=== PATIENT | female | born 1955 | race Caucasian/White ===

== ENCOUNTER 2024-02-21 18:20 | Inpatient (IN) | payer BC, SELFPAY ==
[2024-02-21 14:25] VITALS: BP 195/62
--- NOTE | 2024-02-21 14:43 | ED.GENMED ---
History of Present Illness
General
Chief Complaint: Breathing Problem
Source: patient
Exam Limitations: none
Time Seen by Provider: 02/21/24 14:38
Nursing documentation reviewed up to this point in time: agreed with
History of Present Illness
History of Present Illness:
Patient is a 68-year-old female who presents to the ER for evaluation. Patient reports the past several weeks she has had intermittent nausea and off-and-on diarrhea. She also has noticed over the past several days that her heart rate was on the
lower side in the 40s. She reports her heart rate is normally 68�72. In addition she has felt mildly short of breath. She is from [place] and saw her primary care physician in [place] on Saturday who did blood work and put her on potassium for
today and tomorrow. She came here to [facility] to be evaluated by cardiology.
Phy Exam
General Physical Exam
General Presentation: no apparent distress
General age: appears stated age
General Skin: warm and dry
General Habitus: normal
General Mental: alert
General Hydration: appears well hydrated
Cardiovascular Exam
Cardiovascular Exam: normal peripheral pulses and bradycardia
Pulmonary Exam
Pulmonary Exam: lungs clear and no respiratory distress
Neurological Exam
Neurological Exam: alert
[place] Coma Scale
Eye Opening: Spontaneous
Verbal Response: Oriented
Motor Response: Obeys Commands
GCS Total Score: 15
Musculoskeletal Exam
Musculoskeletal Exam: full ROM
Skin Exam
Skin Exam: normal color and warm/dry
Psychiatric Exam
Psychiatric Exam: normal mood/affect
Scores
Heart Failure Risk
Heart Failure Risk Score: Not Applicable
Course
Orders/Labs/Results
Orders:
Orders
02/21/24 14:25
ECG [Electrocardiogram (*1)] Urgent
Reason for Study: Shortness of Breath
EKG- Treatment ONCE
02/21/24 14:44
Cardiac Monitoring- Treatment ONCE
IV Insert/Care/Rem.- Treatment PRN
02/21/24 15:07
Basic Metabolic Panel Urgent
Complete Blood Count/With Diff Urgent
Pro-BNP [NT-proBNP] Urgent
TSH Reflex To Free T4 Urgent
Troponin I Urgent
02/21/24 15:17
Add On- LAB Urgent
Tests Added?: mag.
02/21/24 16:19
Magnesium Urgent
Potassium Urgent
02/21/24 16:24
HydrALAZINE [Apresoline] 20 mg PO PRN PRN
Abnormal Lab Results
02/21/24
15:07
MPV 11.0 H fL
(7.4-10.4)
Absolute Monos (auto) 0.9 H 10^3/uL
(0.1-0.6)
Monocytes % 9.4 H %
(1.7-9.3)
Chloride 109 H mmol/L
(98-107)
Carbon Dioxide 18 L mmol/L
(22-30)
BUN 27 H mg/dl
(7-17)
Creatinine 1.6 H mg/dL
(0.6-1.0)
Glucose 100 H mg/dl
(70-99)
02/21/24 15:07
02/21/24 16:19
Vital Signs
Initial and Last Documented VS:
Initial Vital Signs
Temp Pulse Resp BP Pulse Ox
99.4 F 47 16 195/62 99
02/21/24 14:25 02/21/24 14:25 02/21/24 14:25 02/21/24 14:25 02/21/24 14:25
Last Documented Vital Signs
Temp Pulse Resp BP Pulse Ox
99.4 F 83 20 188/44 95
02/21/24 14:25 02/21/24 16:15 02/21/24 16:15 02/21/24 16:00 02/21/24 16:15
Staker Surveying consulted with Physician
Staker Surveying consulted with physician?: Yes
Name of Physician Consulted: tan
MDM/Problems Addressed
Differential Diagnosis Includes:
Not limited to arrhythmia electrolyte abnormality, dehydration, congestive heart failure
MDM/Problems Addressed:
Patient is a 68-year-old female who presented to the ER for evaluation. Patient has had intermittent diarrhea and nausea over the past several weeks and has noticed recently that her heart rate was low in the 40s. She saw her family doctor several
days ago and presented here to the ER. She does complain of some shortness of breath with exertion which is new over the past several days to 1 week. Patient presents with a low heart rate in the 40s nonhypoxic here in the ER case reviewed and EKG
reviewed by cardiology, DR Maged Andrews . EKG appears to be a 2-1 AV block.
Patient evaluated by cardiology normal potassium normal magnesium will need pacemaker patient admitted to the hospital service.
*Pulse Oximetry
Patient hypoxic: no
*EKG
Interpreted by ED Provider?: Yes
Comparison EKG: no comparison EKG present
Heart Rate: 43
Rate: normal
Rhythm: sinus and other (Sinus with 2-1 AV conduction block)
*Critical Care Note
Total Time (30-74mins, 75-104mins- exclusive of procedures): Not Applicable
Patient Management
Discussion with other providers: Survey Research Professor (cardiology Dr Andrews)
ED Attending Note
-
Portions of this chart may have been created with voice recognition software.� Occasional wrong word or��sound alike� substitutions may have occurred due to the inherent limitations of voice recognition software.
Discharge Plan
Departure
Patient Disposition: Admit
Date of Disposition: 02/21/24
Time of Disposition: 16:58
Admit to: Telemetry
Admit to doctor: hospitalist
Presentation/result/management discussed w/ accepting MD/DO: Hospitalist
Patient with high blood pressure during this ER visit?: Yes
Condition: Fair
Covid-19: Not Applicable
Discharge Problem:
Symptomatic bradycardia
Prescriptions:
No Action
diphenhydramine HCl [Benadryl] 50 mg Capsule
50 mg PO HSPRN PRN (Reason: allergies)
cetirizine [Zyrtec] 10 mg Tablet
10 mg PO DAILYPRN PRN (Reason: allergies)
amlodipine 5 mg Tablet
5 mg PO HS
albuterol sulfate 90 mcg/actuation Hfa Aerosol Inhaler
2 puff INHALATION R Q6HPRN PRN (Reason: sob)
losartan 100 mg Tablet
100 mg PO DAILY
Referrals:
SUDEEP CALDERON [Other]
SUDEEP CALDERON [Other]
Interventions
Interventions:
*Risk Screen - Suicide Last Done: 02/21/24 14:29
*General Assessment Last Done: 02/21/24 15:18
*Neglect/Abuse Screening Last Done: 02/21/24 14:29
ED- Fall Risk Assessment Last Done: 02/21/24 15:18
ED- Cardiac Assessment Last Done: 02/21/24 15:18
ED- Pulmonary Assessment Last Done: 02/21/24 15:18
Discharge Date and Time
Print Language: STATELESS
--- NOTE | 2024-02-21 15:04 | CON.CAR ---
Addendum entered and electronically signed by Maged Andrews MD (Ellie) 02/21/24 16:24:
I saw and examined the patient.
The RETURNS SUPERVISOR's note was reviewed and I agree with the note.
Comment:
68-year-old female with past medical history of hypertension who presents with shortness of breath on exertion and low heart rates. Patient reports that since late last week or early this week, she has noted dyspnea on exertion. She also checked
her heart rates and noted that they were in the 40s to 50s. She saw her primary care doctor on Saturday and he told her that based on her ECG, she had a mild blockage and she should either go to the ER or follow-up with cardiology. Review of her
ECG from that time shows 2-1 AV block. She lives in [place] primarily but came up to this area to drop her dogs off at the vet. And someone at the vet told her that she should come to the hospital. Also notably she has had diarrhea and GI upset
this week. Her PCP prescribed potassium tablets which she took on Saturday. She got labs done on morning which she thinks showed a potassium of 4.4. In general her blood pressure is uncontrolled she does not check it at home, but notes
that in her PCPs office it is systolics in the 140s to 170s. She is on amlodipine and losartan but does not know the doses.
Physical exam is notable for obese female in no acute distress, cardiovascular exam with bradycardia, no murmurs/rubs/gallops, no lower extremity edema, clear lungs bilaterally, JVP difficult to assess due to body habitus. Labs notable for CBC
within normal limits, creatinine 1.6 (unknown baseline), troponin 0.02, proBNP 1360, TSH 1.2, potassium and magnesium are pending. Twelve-lead ECG shows sinus rhythm with 2-1 AV conduction and a right bundle branch block.
In summary she has 2-1 conduction likely due to second-degree AV block (Mobitz type II) given her known infra-Hisian conduction disease with right bundle branch block. She is currently hemodynamically stable and asymptomatic at rest. There are no
obvious reversible causes such as thyroid abnormality, ischemia, risk factors for Lyme disease, or concern for endocarditis. That being said we need to ensure that this is not due to an electrolyte issue. We will discuss with EP colleagues to see
if she needs a pacemaker today or can be monitored on telemetry until Saturday. She is hypertensive with a wide pulse pressure. It sounds like her blood pressure is uncontrolled at baseline. I do not want to treat aggressively given her AV block
and low diastolic pressure. We can give her hydralazine as needed for systolic >180.
Original Note:
Consultation
Consultation Request
Date/Time Consultation Requested: 02/21/2024 15:00
Date/Time Consultation Performed: 02/21/2024 15:05
Requesting Provider: SILVIA Aparicio
Performing Provider: SILVIA Silveira for Dr. Andrews
Reason for Consultation: Abnormal EKG
Medical History
-
Chief Complaint: Low heart rate
History of Present Illness:
Magalie Arceo is a 68-year-old female from [place] with hypertension who presented to the emergency department with a chief complaint of low heart rate. She endorsed associated AGUILAR. She saw her PCP on Saturday. She has been experiencing
nausea with diarrhea. She was self treating at home with rico chews. EKG in his office showed 'slow heart rate'. I was able to obtain a copy of the EKG and she appeared to be in 2:1 heart block. He told her to see a carpentry instructor. He gave her
a short course of oral potassium. She presented to the emergency department at the recommendation of a local friend. She endorses some fatigue. No syncope/presyncope.
Past Medical History
Past Medical History: HTN
Social History
Tobacco: Non-Smoker
Alcohol: None
Drug: None
Personal: Single
Living: Alone
Family History
Family History: Reviewed & Not Pertinent (Denies premature CAD and SCD.)
Allergies / Home Medications
Allergy/AdvReac Type Severity Reaction Status Date / Time
Penicillins Allergy Rash Verified 02/21/24 14:30
Sulfa (Sulfonamide Allergy Rash Verified 02/21/24 14:30
Antibiotics)
Review of Systems
-
History Source: Patient
All other systems: Negative unless noted
Constitutional: Fatigue
EENT: No Symptoms
Respiratory: Trouble Breathing
Cardiac: No Symptoms
Abdomen/GI: Diarrhea
: No Symptoms
Musculoskeletal: No Symptoms
Skin: No Symptoms
Neurological: No Symptoms
Endocrine: No Symptoms
Hematologic/Lymphatic: No Symptoms
Physical Exam
Vital Signs
Temp Pulse Resp BP Pulse Ox
99.4 F 47 16 195/62 99
02/21/24 14:25 02/21/24 14:25 02/21/24 14:25 02/21/24 14:25 02/21/24 14:25
Physical Exam
General: Well Developed, Well Nourished, No Apparent Distress and Comfortable
HEENT: Normocephalic, Anicteric and Moist Mucous Membranes
Respiratory: Clear and Non Labored Respirations
Cardiac: S1/S2, Regular Rhythm and Peripheral Edema (trace LE edema)
Breast: Deferred by me
GI: Soft, Non Tender, Non Distended and Normal Bowel Sounds
Rectal: Deferred by Provider
Genito-urinary: No Costovertebral Tender
Musculoskeletal: No Clubbing and No Cyanosis
Skin: Warm and Dry
Neuro: AO x 3
Hematologic/Lymphatic: No Lymphadenopathy
Psych: Calm
Impression / Plan
-
2:1 heart block
-Labs are pending, rule out electrolyte abnormality
-TSH pending
-This rhythm has been ongoing since before 02/19/2024
HTN
-On amlodipine and losartan as an outpatient
Nausea and diarrhea, per primary
[2024-02-21 15:28] LABS: % Basophils 0.3 % (0-2); % Eosinophils 0.4 % (0-6); % Immature Granulocytes 0.2 % (0-0.5); % Lymphocytes 23.6 % (20.5-51.1); % Monocytes 9.4 % (1.7-9.3); % Neutrophils 66.1 % (42.2-75.2); Absolute Lymphocytes 2.3 10^3/uL (1.2-3.4); Absolute Monocytes 0.9 10^3/uL (0.1-0.6); Absolute Neutrophils 6.3 10^3/uL (1.4-6.5); Hematocrit 39.8 % (37.0-47.0); Hemoglobin 13.5 g/dL (12.0-16.0); Mean Corp Hgb Conc. 33.9 g/dL (33.0-37.0); Mean Corpuscular Hgb 30.9 pg (27.0-31.0); Mean Corpuscular Volume 91.1 fL (81.0-99.0); Nucleated Red Blood Cells % 0 %; Platelet Count 269 10^3/uL (130-400); Red Blood Cell Count 4.37 10^6/uL (4.20-5.40); Red Cell Dist. Width 14.5 % (11.5-14.5); White Blood Cell Count 9.5 10^3/uL (4.8-10.8)
[2024-02-21 15:55] LABS: NT-proBNP 1360 pg/ml; Troponin I 0.022 ng/ml
[2024-02-21 16:00] VITALS: BP 188/44
[2024-02-21 16:08] LABS: Blood Urea Nitrogen 27 mg/dl (7-17); Carbon Dioxide 18 mmol/L (22-30); Chloride 109 mmol/L (98-107); Glucose 100 mg/dl (70-99); Sodium 141 mmol/L (135-145); eGFR 35.35
[2024-02-21 16:13] LABS: TSH Reflex To Free T4 1.21 uIU/ml (0.47-4.68)
[2024-02-21 16:41] LABS: Magnesium 2.2 mg/dl (1.6-2.3); Potassium 4.5 mmol/L (3.5-5.1)
--- NOTE | 2024-02-21 17:03 | HPS.HSE ---
Family Physician
-
Family Physician: SUDEEP CALDERON
Chief Complaint
-
so
History of Present Illness
68-year-old female with past medical history of hypertension who presents with shortness of breath on exertion and low heart rates for more than a week. stated sob with exertion. denied chest pain, runny nose, congestion, cough. denied fever,
chills.patient noted her heart was not beating as usual. she noted heart rate was in 40's. She saw her primary care doctor on Saturday and he told her that based on her ECG, she had a mild blockage and she should either go to the ER or follow-up
with cardiology. Review of her ECG from that time shows 2-1 AV block. Also notably she has had diarrhea 3 weeks ago, which got better. denied abdominal pain,n,v,d. denied dysuria or hematuria.
upon arrival she was noted in heart block. admitting for further management.
Medical History
Past Medical History
Past Medical History: Reports Other
Additional Past Medical History:
HTn
Past Surgical History: Reports None
Social History
Tobacco: Non-smoker
Alcohol: None
Drug: None
Family History
Family History: Not pertinent
Allergies / Home Medications
Allergies reflects when Allergies were last updated in [facility].
Home Medications with original date entered in [facility]
Allergy/Medication List:
Allergies
Allergy/AdvReac Type Severity Reaction Status Date / Time
Penicillins Allergy Rash Verified 02/21/24 14:30
Sulfa (Sulfonamide Allergy Rash Verified 02/21/24 14:30
Antibiotics)
Home Medications
albuterol sulfate 90 mcg/actuation aerosol inhaler 2 puff inhalation R Q6HPRN PRN sob 02/21/24
amlodipine 5 mg tablet 5 mg PO HS 02/21/24
cetirizine 10 mg tablet (Zyrtec) 10 mg PO DAILYPRN PRN allergies 02/21/24
diphenhydramine HCl 50 mg capsule 50 mg PO HSPRN PRN allergies 02/21/24
losartan 100 mg tablet 100 mg PO DAILY 02/21/24
Review of Systems
-
Constitutional: Reports No Symptoms
EENT: Reports No Symptoms
Respiratory: Reports Trouble Breathing
Cardiac: Reports No Symptoms
Abdomen/GI: Reports No Symptoms
: Reports No Symptoms
Musculoskeletal: Reports No Symptoms
Skin: Reports No Symptoms
Neurological: Reports No Symptoms
Endocrine: Reports No Symptoms
Hematologic/Lymphatic: Reports No Symptoms
Psych: Reports No Symptoms
Physical Exam
Vital Signs
Vital Signs
Temp Pulse Resp BP Pulse Ox
99.4 F 83 20 188/44 95
02/21/24 14:25 02/21/24 16:15 02/21/24 16:15 02/21/24 16:00 02/21/24 16:15
Physical Exam
General: Well Developed, Well Nourished and No Apparent Distress
HEENT: NormoCephalic, Moist mucous membranes and Atraumatic
Respiratory: Clear
Cardiac: S1/S2 and Regular Rhythm; No Murmur or Rub
GI: Soft, Non Tender, Non Distended and Normal Bowel Sounds; No Organomegaly
Rectal: Deferred by Provider
Musculoskeletal: No Clubbing, No Cyanosis and No Edema
Skin: No Rash
Neuro: AO x 3 and Nonfocal/grossly intact
Psych: Calm
Laboratory Results
-
02/21/24 15:07
02/21/24 16:19
Laboratory Results
Total Bilirubin Cancelled 02/21/24 15:07
AST Cancelled 02/21/24 15:07
ALT Cancelled 02/21/24 15:07
Alkaline Phosphatase Cancelled 02/21/24 15:07
Troponin I 0.022 ng/ml 02/21/24 15:07
Data Reviewed
-
Lab Data: Labs Reviewed by me
Impression/Plan
-
# Bradycardia/Short of breath likely from heart block
-EKG with normal sinus rhythm with 2:1 A-V conduction, right bundle branch block
-For pacemaker
-Cardiology following patient
# Acute kidney injury
-Creatinine 1.6, CO2 18
-hold losartan
HTN
-Norvasc continued
#DVT prophylaxis
-heparin sq
#CODE status
-full code
[2024-02-21 17:15] VITALS: BP 144/103
[2024-02-21 18:00] VITALS: BP 188/58
--- NOTE | 2024-02-21 18:58 | W.PN.UPDATE ---
Update Note
Progress Note Update
This is an addendum to the H&P written by Monisha Curiel on 02/21/2024. Patient seen and examined independently with DIVER PUMPER.
68-year-old female medical history of uncontrolled hypertension, presenting with shortness of breath on exertion and low heart rates since last week. She saw her primary care who noted 2:1 AV block on EKG.
EKG shows 2-1 AV conduction block likely Mobitz type II. Right bundle branch block. TSH unremarkable. Potassium and magnesium levels unremarkable.
She has a history of uncontrolled blood pressure currently blood pressure 188/58 with with elevated pulse pressure. As needed hydralazine. Cardiology consulted to determine if pacemaker is necessary.
Labs show creatinine 1.6, unclear baseline. Hold losartan for now. Cardiac BNP 1360. Chest x-ray unremarkable.
[2024-02-21 19:00] VITALS: BP 202/66
[2024-02-21] MEDS: NORVASC 5 MG PO (21:30)
--- NOTE | 2024-02-21 21:45 | PTCARENOTE ---
Pt received from ED at 2130. Pt pleasant, AAOX3, VSS, HR in the 40's, and able to ambulate into room. Pt receptive to room and call henry. Pt bed in lowest position and call henry within reach. Pt educated on importance of call henry usage, pt relays
understanding and cooperation. Will continue with current plan of care.
[2024-02-22] VITALS (12 sets, daily range): BP systolic 139–205; BP diastolic 43–73
--- NOTE | 2024-02-22 02:35 | W.PN.UPDATE ---
Update Note
Progress Note Update
RN reported patient HR down to 29-30's, BP157/64, HR33, O297, T98.1, R 18. Patient asymptomatic. Admitted with Bradycardia 2:1 2nd degree AV Heart block (Mobitz II), Likely due to electrolyte imbalance due to ongoing diarrhea, K and mag noted to be
wnl, BUN/creat elevated, will bolus with 250 IV NSS, advised to place AED pads and transfer to IVU for closer observation. labs and EKG in AM.
[2024-02-22] MEDS: NSS 250 IV (02:38)
--- NOTE | 2024-02-22 03:00 | PTCARENOTE ---
Pt HR sustaining in low 30's, frequently dropping to 29 or 28. Pt not complaining of any chest pain, dizziness, lightheadedness, or any new symptoms. Pt current VS are BP157/64, HR33, O297, T98.1, R 18. TOOL PLANER SET UP OPERATOR notified and TOOL PLANER SET UP OPERATOR recommended to apply AED
pads, administer 250 bolus IVF and upgrade pt to IVU for further treatment. Pt transported via wheelchair and handed off to IVU [place], at 0320.
[2024-02-22 04:43] LABS: Hematocrit 38.5 % (37.0-47.0); Hemoglobin 13.1 g/dL (12.0-16.0); Mean Corpuscular Hgb 30.8 pg (27.0-31.0); Mean Corpuscular Volume 90.6 fL (81.0-99.0); Platelet Count 254 10^3/uL (130-400); Red Blood Cell Count 4.25 10^6/uL (4.20-5.40); Red Cell Dist. Width 14.5 % (11.5-14.5)
[2024-02-22 05:12] LABS: Blood Urea Nitrogen 25 mg/dl (7-17); Calcium 9.5 mg/dl (8.4-10.2); Carbon Dioxide 19 mmol/L (22-30); Chloride 109 mmol/L (98-107); Glucose 101 mg/dl (70-99); Potassium 4.3 mmol/L (3.5-5.1); Sodium 142 mmol/L (135-145); eGFR 45.35
[2024-02-22] MEDS: APRESOLINE 20 MG PO ×2 (05:20→23:06)
--- NOTE | 2024-02-22 05:55 | PTCARENOTE ---
Received patient from 4th floor. SB with a 2nd degree HB and BBB on the monitor. HR in the 30s, patient has no symptoms. Oriented pt to room and discussed plan of care, pt verbalizes understanding. Pts BP 193/52, and HR occasionally dropping to 27
INDUSTRIAL MAINTENANCE ELECTRICIAN Lynn Monte made aware, PRN hydralazine administered as per JUN. Pt complains of not being able to sleep because of the beeping from her low HR on the monitor. Ear plugs given to pt. Call henry within reach.
--- NOTE | 2024-02-22 08:05 | W.PN.HOSP.TC ---
Today's Communication/Plan
-
see AP
Assessment / Plan
Assessment / Plan
HPI: 68-year-old female medical history of uncontrolled hypertension, presented with shortness of breath on exertion and low heart rates since last week.
She saw her primary care who noted 2:1 AV block on EKG, likely Mobitz type II and Right bundle branch block.
Cardiology consulted to determine if pacemaker is necessary.
A/P:
# SOB likely 2/2 Bradycardia from heart block
EKG with normal sinus rhythm with 2:1 A-V conduction, right bundle branch block
Cardiology CS for eval of PPM
Check echo
# Acute kidney injury vs CKD
SCr 1.6 on admission, today at 1.3
hold losartan
cont to monitor SCr
# HTN
Cont MATERIAL LOADER Norvasc 5 mg
Add hydralazine 10 mg BID
IV Hydralazine PRN
DVT prophylaxis: heparin sq
CODE status: full code
Anticipated Discharge: > 48 hours
Subjective/Interval History
-
Date of Service: February 22, 2024
Objective Data
-
Labs:
Laboratory Results
02/22/24
03:55
WBC 8.0
Hgb 13.1
Hct 38.5
Plt Count 254
Sodium 142
Potassium 4.3
Chloride 109 H
Carbon Dioxide 19 L
BUN 25 H
Creatinine 1.3 H
Glucose 101 H
Calcium 9.5
Vital Signs:
Vital Signs
Temp Pulse Resp BP Pulse Ox
36.4 C 33 16 178/62 97
02/22/24 07:27 02/22/24 07:30 02/22/24 07:27 02/22/24 07:28 02/22/24 07:27
Review of Systems
-
All other systems: Reviewed and negative
Physical Exam
-
General: Well Developed, Well Nourished, No Apparent Distress, Comfortable and Conversant; Negative Respiratory Distress
HEENT: Normocephalic, Atraumatic, Nose Appears Normal and Ears Appear Normal; Negative Oxygen
Respiratory: Clear to Auscultation and Non Labored Respirations; Negative Accessory Resp Muscle Use
Cardiac: Regular Rhythm and S1/S2
GI: Soft, Nontender, Nondistended and Normal Bowel Sounds
Skin: Warm and Dry
Neuro: Awake, Alert, Oriented and AO x 3
Psych: Calm and Intact Judgement/Insight
Data Reviewed
-
Labs: Labs Reviewed by me
[2024-02-22] MEDS: APRESOLINE 10 MG PO ×2 (09:25→20:03)
--- NOTE | 2024-02-22 09:57 | W.PN.CD ---
Addendum entered and electronically signed by Maged Andrews MD (Ellie) 02/22/24 13:01:
I saw and examined the patient.
The DIET AID's note was reviewed and I agree with the note.
Comment:
68-year-old female with past medical history of hypertension who presented with shortness of breath and was found to have 2-1 AV block. She continues to have dyspnea with exertion, but otherwise no symptoms overnight. No presyncope,
lightheadedness, dizziness, or syncope. Telemetry shows stable 2-1 AV block with right bundle branch block and heart rate in the 30s to 40s.
She has no reversible causes for her second-degree heart block. We will plan for permanent pacemaker placement on Saturday. In the meantime we will continue to monitor on telemetry. For her hypertension, she has been restarted on her home
amlodipine 5 mg daily. She is also on hydralazine 10 mg twice daily. Her NADINE seems to be improving. Once that resolves, we can resume her home losartan and stop hydralazine.
Original Note:
Today's Communication / Plan
-
continue BP meds.
monitor on tele.
plan for echo and PPM Saturday02/24/24.
Impression / Plan
-
2:1 heart block - new.
- with RBBB.
- ongoing rhythm since 02/19/24, seen at PCP office.
- no electrolyte abnormalities noted.
- continue to monitor on tele and plan for PPM Saturday02/24/24.
- plan echo Saturday02/24/24.
HTN - chronic, elevated on arrival.
- holding Losartan due to NADINE.
- now improved.
- continue Amlodipine and now on Hydralazine, continue.
NADINE - creatinine 1.6 on arrival.
- trending down 1.3 today.
Nausea and diarrhea - per primary.
Physical Exam
Vital Signs/Labs
Vital Signs
Temp Pulse Resp BP Pulse Ox
97.6 F 38 16 143/50 97
02/22/24 07:27 02/22/24 09:45 02/22/24 07:27 02/22/24 09:26 02/22/24 09:00
02/22/24 03:55
02/22/24 03:55
Magnesium 2.2 mg/dl (1.6-2.3) 02/21/24 16:19
02/21/24
15:07
Kay-M-Duhjxeoxykn Pept 1360
LAB Results
02/21/24
15:07
Troponin I 0.022
Physical Exam
Constitutional: No acute distress
EENT: Anicteric and Moist mucous membranes
Cardiovascular: Rhythm & rate is regular
Respiratory: Respiratory effort normal
GI: Soft, Non tender and Normal bowel sounds
Neuro/Psych: AO x 3
Other: Skin (warm, dry)
Data Reviewed
-
Date of Service: February 22, 2024
Medical Decision Making: Reviewed Test Results
EKG: Tracing Personally Visualized and interpreted
Labs: Labs Reviewed by me
--- NOTE | 2024-02-22 10:23 | PTCARENOTE ---
Rec'd pt at handoff. Tele- 2-1 HB. HR 30-40s at rest and 70-80s on ambulation. Pt currently has no c/o pain/discomfort/SOB at this time. POC reviewed w/ pt. Verbalizes understanding.
[2024-02-22] MEDS: NORVASC 5 MG PO (21:09)
[2024-02-22] MEDS: HYDROCORTISONE 2.5% CREAM 1 APPLIC TOPICAL (22:04)
[2024-02-22] MEDS: BENADRYL ELIXIR 12.5 MG PO (23:06)
[2024-02-23] VITALS (8 sets, daily range): BP systolic 146–191; BP diastolic 41–65; BMI 39.9
[2024-02-23 04:19] LABS: Hematocrit 36.9 % (37.0-47.0); Hemoglobin 12.5 g/dL (12.0-16.0); Mean Corp Hgb Conc. 33.9 g/dL (33.0-37.0); Mean Corpuscular Hgb 31.3 pg (27.0-31.0); Mean Corpuscular Volume 92.5 fL (81.0-99.0); Mean Platelet Volume 11.3 fL (7.4-10.4); Platelet Count 244 10^3/uL (130-400); Red Blood Cell Count 3.99 10^6/uL (4.20-5.40); Red Cell Dist. Width 14.3 % (11.5-14.5); White Blood Cell Count 7.8 10^3/uL (4.8-10.8)
--- NOTE | 2024-02-23 04:22 | PTCARENOTE ---
Pt HR dropped as low as 27 on monitor. BP 183/48 Pt denies headache, dizziness. PRN Hydralazine given. Pt ambulates in the room independently. Safety measures in place.
[2024-02-23 04:40] LABS: Blood Urea Nitrogen 36 mg/dl (7-17); Calcium 9.1 mg/dl (8.4-10.2); Carbon Dioxide 19 mmol/L (22-30); Chloride 109 mmol/L (98-107); Glucose 92 mg/dl (70-99); Potassium 4.2 mmol/L (3.5-5.1); Sodium 142 mmol/L (135-145); eGFR 41.49
--- NOTE | 2024-02-23 07:43 | W.PN.HOSP.TC ---
Today's Communication/Plan
-
see A/P
Assessment / Plan
Assessment / Plan
HPI: 68-year-old female medical history of uncontrolled hypertension, presented with shortness of breath on exertion and low heart rates since last week.
She saw her primary care who noted 2:1 AV block on EKG, likely Mobitz type II and Right bundle branch block.
Cardiology consulted to determine if pacemaker is necessary.
A/P:
# SOB likely 2/2 Bradycardia from heart block
EKG with normal sinus rhythm with 2:1 A-V conduction, right bundle branch block
Cardiology on board, plan for PPM 02/23
Check echo
# Acute kidney injury vs CKD unclear stage
SCr 1.6 on admission, today at 1.4
hold losartan
cont to monitor SCr
# HTN
Cont [employer] Norvasc 5 mg
Off [employer] Losartan with elevated SCr
Added hydralazine 10 mg BID,
PO hydralazine PRN per card
DVT prophylaxis: heparin sq
CODE status: full code
Anticipated Discharge: 24 - 48 hours
Subjective/Interval History
-
Date of Service: February 23, 2024
Objective Data
-
Labs:
Laboratory Results
02/23/24
03:38
WBC 7.8
Hgb 12.5
Hct 36.9 L
Plt Count 244
Sodium 142
Potassium 4.2
Chloride 109 H
Carbon Dioxide 19 L
BUN 36 H
Creatinine 1.4 H
Glucose 92
Calcium 9.1
Vital Signs:
Vital Signs
Temp Pulse Resp BP Pulse Ox
36.5 C 27 20 146/50 98
02/23/24 07:15 02/23/24 04:15 02/23/24 07:15 02/23/24 03:31 02/23/24 07:15
I&O
02/22/24 02/23/24 02/24/24
07:59 06:59 06:59
Intake Total
Balance
Review of Systems
-
All other systems: Reviewed and negative
Physical Exam
-
General: Well Developed, Well Nourished, No Apparent Distress, Comfortable and Conversant; Negative Respiratory Distress
HEENT: Normocephalic, Atraumatic, Nose Appears Normal and Ears Appear Normal; Negative Oxygen
Respiratory: Clear to Auscultation and Non Labored Respirations; Negative Accessory Resp Muscle Use
Cardiac: Regular Rhythm and S1/S2
GI: Soft, Nontender, Nondistended and Normal Bowel Sounds
Skin: Warm and Dry
Neuro: Awake, Alert, Oriented and AO x 3
Psych: Calm and Intact Judgement/Insight
Data Reviewed
-
Labs: Labs Reviewed by me
[2024-02-23] MEDS: APRESOLINE 10 MG PO ×2 (07:56→21:04)
[2024-02-23] MEDS: HYDROCORTISONE 2.5% CREAM 1 APPLIC TOPICAL ×2 (07:56→21:04)
--- NOTE | 2024-02-23 09:15 | PTCARENOTE ---
Rec'd pt at handoff. HR 30s. Pt has no complaints at this time. POC reviewed w/ pt. Verbalizes understanding. Call elaine w/in reach.
--- NOTE | 2024-02-23 11:23 | W.PN.CD ---
Today's Communication / Plan
-
Pacemaker tomorrow
Resume losartan for hypertension
Impression / Plan
-
68-year-old female with past medical history of hypertension who presented with shortness of breath and was found to have 2-1 AV block with RBBB, concerning for Mobitz type II.
2:1 heart block - new, no reversible causes.
- with RBBB.
- ongoing rhythm since 02/19/24, seen at PCP office.
- continue to monitor on tele and plan for PPM Saturday02/24/24.
- plan echo Saturday02/24/24.
HTN - chronic, elevated on arrival.
- Resume home losartan as she has been hemodynamically stable for several days now
- continue Amlodipine and now on Hydralazine, continue.
- Suspect we can stop hydralazine prior to discharge and uptitrate other meds
CKD
Nausea and diarrhea - per primary.
Subjective: Feels well this morning. Sitting in the family area outside of her room. No lightheadedness, dizziness, presyncope, or syncope. Telemetry reveals stable 2-1 AV block.
Physical Exam
Vital Signs/Labs
Vital Signs
Temp Pulse Resp BP Pulse Ox
97.7 F 33 20 150/65 98
02/23/24 07:15 02/23/24 08:30 02/23/24 07:15 02/23/24 07:17 02/23/24 08:30
02/23/24 03:38
02/23/24 03:38
Magnesium 2.2 mg/dl (1.6-2.3) 02/21/24 16:19
02/21/24
15:07
Ghr-G-Jatnlpingwm Pept 1360
LAB Results
02/21/24
15:07
Troponin I 0.022
Physical Exam
Constitutional: No acute distress and Comfortable
Cardiovascular: Rhythm & rate is regular, Pedal edema is absent, JVD pressure is normal, S1S2 is normal and Murmur/rub/gallop absent
Respiratory: Respiratory effort normal and Lungs clear to auscul.
Data Reviewed
-
Date of Service: February 23, 2024
Medical Decision Making: Reviewed Test Results, Independent Historian Assessment, Test Interpretation and Review of Case with other Provider
EKG: Tracing Personally Visualized and interpreted
Labs: Labs Reviewed by me
[2024-02-23] MEDS: COZAAR 50 MG PO (12:04)
[2024-02-23] MEDS: NORVASC 5 MG PO (21:57)
--- NOTE | 2024-02-23 22:29 | PTCARENOTE ---
received patient at the change of shift. AAOx3. friend visiting. HR 2:1 AV block, 40s. patient asymptomatic. denies any cp/sob. denies any lightheadedness. bp elevated-scheduled medications given-see mar. patient complaining of being itchy. red rash
at sites of EKG leads/adhesive. patient denies history of adhesive sensitivity. patient requesting Benadryl-updated Mallika Buck HR LEADER. order placed, see mar. sensitive leads applied. partial bath per patient with CHG soap. reviewed plan of care with
patient and verbalized understanding. NPO at midnight. answered all questions. educated patient to inform RN with any changes. call henry within reach.
[2024-02-23] MEDS: BENADRYL 12.5 MG IV (23:24)
[2024-02-24] VITALS (9 sets, daily range): BP systolic 124–198; BP diastolic 43–69; BMI 39.4
[2024-02-24] MEDS: APRESOLINE 10 MG IV (00:22)
--- NOTE | 2024-02-24 00:30 | PTCARENOTE ---
Addendum entered by Pako Fernando RN 02/24/24 01:11:
improved BP- 159/43. patient states improved itching after changing to sensitive leads as well. educated to call RN with any changes.
Original Note:
patient bp elevated-179/53. manual blood pressure- 180/60. HR 30s. updated Mallika Buck [employer]. 10 mg IV hydralazine ordered and given, see mar.
[2024-02-24 06:27] LABS: Hematocrit 39.6 % (37.0-47.0); Hemoglobin 13.4 g/dL (12.0-16.0); Mean Corp Hgb Conc. 33.8 g/dL (33.0-37.0); Mean Corpuscular Hgb 32.1 pg (27.0-31.0); Mean Corpuscular Volume 94.7 fL (81.0-99.0); Mean Platelet Volume 11.4 fL (7.4-10.4); Platelet Count 240 10^3/uL (130-400); Red Blood Cell Count 4.18 10^6/uL (4.20-5.40); Red Cell Dist. Width 14.4 % (11.5-14.5); White Blood Cell Count 7.3 10^3/uL (4.8-10.8)
[2024-02-24 06:50] LABS: Blood Urea Nitrogen 35 mg/dl (7-17); Calcium 9.4 mg/dl (8.4-10.2); Carbon Dioxide 20 mmol/L (22-30); Chloride 109 mmol/L (98-107); Estimated Creatinine Clearance 52 ml/min; Glucose 91 mg/dl (70-99); Potassium 4.4 mmol/L (3.5-5.1); Sodium 141 mmol/L (135-145); eGFR 49.92
--- NOTE | 2024-02-24 07:25 | W.PN.CD ---
Today's Communication / Plan
-
- PPM today
Impression / Plan
-
68-year-old female with past medical history of hypertension who presented with shortness of breath and was found to have 2-1 AV block with RBBB, concerning for Mobitz type II.
2:1 heart block - new, no reversible causes.
- with RBBB.
- ongoing rhythm since 02/19/24, seen at PCP office.
- continue to monitor on tele and plan for PPM today
- plan echo today
HTN - chronic, elevated on arrival.
- Resume home losartan as she has been hemodynamically stable for several days now
- continue Amlodipine and now on Hydralazine, continue.
- Suspect we can stop hydralazine prior to discharge and uptitrate other meds
CKD
Nausea and diarrhea - per primary.
Subjective: Feels well this morning. Sitting in the family area outside of her room. No lightheadedness, dizziness, presyncope, or syncope. Telemetry reveals stable 2-1 AV block.
Physical Exam
Vital Signs/Labs
Vital Signs
Temp Pulse Resp BP Pulse Ox
98.4 F 52 20 176/49 98
02/24/24 07:11 02/24/24 07:00 02/24/24 07:11 02/24/24 05:44 02/24/24 07:11
02/23/24 02/24/24 02/25/24
06:59 06:59 06:59
Actual Weight 100.8 kg
02/24/24 05:43
02/24/24 05:43
Magnesium 2.2 mg/dl (1.6-2.3) 02/21/24 16:19
02/21/24
15:07
Vac-H-Yfwiybshdxi Pept 1360
LAB Results
02/21/24
15:07
Troponin I 0.022
Physical Exam
Constitutional: No acute distress and Comfortable
EENT: Anicteric and Moist mucous membranes
Cardiovascular: Rhythm & rate is regular, Pedal edema is absent and JVD pressure is normal
Respiratory: Respiratory effort normal, Wheeze Absent and Crackles Absent
GI: Soft, Distention absent, Non tender and Normal bowel sounds
Neuro/Psych: Alert, Oriented and AO x 3
Other: Cardiac Device Site
Data Reviewed
-
Date of Service: February 24, 2024
Medical Decision Making: Reviewed Test Results and Independent Historian Assessment
EKG: Tracing Personally Visualized and interpreted
Echo: Report Reviewed by me
Labs: Labs Reviewed by me
Old Records: Reviewed
--- NOTE | 2024-02-24 08:25 | CARDSERVLU ---
Echocardiogram with Lumason completed after protocol screening completed. Allergies verified.
Patent IV site: __L hand___
IV site flushed with 0.9% NaCl pre and post administration.
Diluted bolus method utilized to enhance visualization of ventricular guevara.
Total volume given: _3.5___ mL
Patient tolerated all procedures well without complications.
--- NOTE | 2024-02-24 08:54 | W.PN.HOSP.TC ---
Today's Communication/Plan
-
Plan for pacemaker
Assessment / Plan
Assessment / Plan
Physical exam:
General: Well Developed, Well Nourished and No Apparent Distress
HEENT: Normocephalic, Atraumatic and Moist Mucous Membranes
Respiratory: Clear to Auscultation; Negative Wheezes, Rales or Rhonchi
Cardiac: Regular Rhythm, bradycardic, and S1/S2
GI: Soft, Nontender and Nondistended
Musculoskeletal: No Clubbing, No Cyanosis and No Edema
Neuro: Awake, Alert and Oriented
Psych: Calm
A/P:
HPI: 68-year-old female medical history of uncontrolled hypertension, presented with shortness of breath on exertion and low heart rates since last week.
She saw her primary care who noted 2:1 AV block on EKG, likely Mobitz type II and Right bundle branch block.
Cardiology consulted to determine if pacemaker is necessary.
A/P:
# SOB likely 2/2 Bradycardia from heart block
Seen and interpreted by myself 12-lead EKG with Mobitz type II and 2:1 A-V conduction, right bundle branch block
Cardiology on board, plan for PPM 02/23
Checked echo EF 65 to 70%, aortic valve gradients elevated
# Acute kidney injury vs CKD unclear stage
SCr 1.6 on admission, today at 1.2
hold losartan
cont to monitor SCr
# HTN
Cont [facility] TECH Norvasc 5 mg
Off [facility]ERG[facility]Y DEPT TECH Losartan with elevated SCr
Added hydralazine 10 mg BID,
PO hydralazine PRN per card
DVT prophylaxis: heparin sq
CODE status: full code
Total time spent on today's encounter was 52 minutes which included time spent in counseling the patient/family regarding diagnosis and treatment plan as listed above, goals of care, and symptom management. Case was discussed with nursing staff,
specialists, and care coordinators/case management. All labs and imaging personally reviewed by me. Remainder the time spent in detailed review of previous records, lab data, imaging, and other medical provider documentation.
Anticipated Discharge: 24 - 48 hours
Subjective/Interval History
-
Date of Service: February 24, 2024
Patient seen this morning prior to procedure. No chest pain or shortness of breath. Blood pressure elevated and cardiology aware.
Objective Data
-
Labs:
Laboratory Results
02/24/24
05:43
WBC 7.3
Hgb 13.4
Hct 39.6
Plt Count 240
Sodium 141
Potassium 4.4
Chloride 109 H
Carbon Dioxide 20 L
BUN 35 H
Creatinine 1.2 H
Glucose 91
Calcium 9.4
Vital Signs:
Vital Signs
Temp Pulse Resp BP Pulse Ox
98.4 F 38 20 181/49 98
02/24/24 07:11 02/24/24 07:45 02/24/24 07:11 02/24/24 07:15 02/24/24 07:11
I&O
02/23/24 02/24/24 02/25/24
06:59 06:59 06:59
Intake Total 650 / 650
Balance 650 / 650
[2024-02-24] MEDS: COZAAR 50 MG PO (09:03)
[2024-02-24] MEDS: APRESOLINE 10 MG PO ×2 (09:03→19:30)
[2024-02-24] MEDS: HYDROCORTISONE 2.5% CREAM 1 APPLIC TOPICAL (09:03)
[2024-02-24] MEDS: FLUSH (NSS) 2 FLUSH IV (09:04)
--- NOTE | 2024-02-24 09:16 | CM ---
Reviewed chart. Met with Mrs. Arceo to review discharge plans. She states prior to admission she resides alone in a two story home without any steps to enter. She states she has a full flight of steps to get to bedroom/full bathroom. She states
she has a powder room on the first floor. She states prior to admission she was independent with ambulation and adls. She states she does not have any DME in the home. She states she has a prescription plan. Medical work-up in progress. The
discharge plan is to return home when medically stable.
--- NOTE | 2024-02-24 10:02 | PTCARENOTE ---
Received patient this morning resting in bed, NPO x meds for pacemaker later today. Patient offers no complaints, is concerned about driving restrictions post procedure since she drove herself here from [place] and she is anxious to speak with the
supplier quality engineer. Itching from telemetry stickers much improved since she was switched to the hypoallergenic ones. Echo done at the bedside as ordered.
--- NOTE | 2024-02-24 13:02 | PTCARENOTE ---
Hospitalist and Cardiology OPTOELECTRONICS ENGINEER notified of elevated BP. Patient is extremely anxious, is asymptomatic. Holding off on prn antihypertensive with impending surgery for pacemaker with anesthesia. Received all her AM meds this morning with a sip of water.
[2024-02-24] MEDS: VANCOCIN 530 MG IV (14:40)
--- NOTE | 2024-02-24 15:07 | PTCARENOTE ---
Patient taken for PPM, IV vanco started prior to transfer as requested by labor representative.
--- NOTE | 2024-02-24 17:06 | ITS.CL.PACE ---
[employer] - Pacemaker Implant
Pacemaker Implant
Procedure Report:
Left Bundle Branch pacing Permanent Pacemaker Placement:
Ms. Arceo is a 68 years old woman with complete heart block and junctional escape in 40s is recommended for pacemaker.
Indications:
Complete heart block
Date of the Procedure: 02/24/2024
Pre-Operative Diagnosis: Third-degree AV block
Post-Operative Diagnosis: Third-degree AV block
Procedure Performed: Conduction system pacing for dual-chamber pacemaker implanted
Performing physician:
Lisa Renae MD
Assistants:
EP staff
Anesthesia:
See anesthesia records
Detailed Description of the Procedure:
The patient was identified using hospital identification and informed consent obtained for the procedure. The risks were explained to the patient and the family including, but not limited to: Bleeding, infection, arrhythmia, stroke,
vascular/cardiac/lung puncture, surgery, pacemaker dependency/device malfunction. All questions were answered.
Anesthesia service provided sedation as reported separately. Antibiotics administered IV for risk of bacterial colonization. After obtaining informed and written consent, the patient was brought to the electrophysiology laboratory.
The initial rhythm was complete heart block with junctional escape rate in 40s.
A timeout was performed immediately before the procedure. The left chest was prepped from the nipple to the angle of the jaw with chlorhexidine, and draped following sterile technique in usual routine.�
A surgical pause and time out was performed immediately prior to the procedure with review of her medical history, recent labs, allergies and medications with site of procedure identified and consent noted in the chart. Antibiotics pre operatively
given. All team members concurred.
A venogram was obtained with patent axillary vein noted. The course of the axillary vein and the bony landmarks were identified. Using the ultrasound the axillary vein route was determined.
Following infiltration with local anesthetic, the axillary vein was accessed under fluoro and the venogram guidance using the micro-puncture apparatus. The second stick was again repeated with similar fashion. The guide wires were advanced to the
inferior vena cava (IVC) under flouro guidance.
A subcutaneous pocket was created with blunt dissection and use of electrocautery. Hemostasis was excellent.
The guide wire was advanced to the RA and was advanced to the RV. The preformed curved long hemostatic peel away HIS sheath was advanced into the RV cavity. A left bundle pacing wire was advanced into the sheath to the tip with ventricular signals
noted with unipolar manner. The HIS location was identified under guidance of the flouroscopy and the pacing wire signals. The sheath with the pacing lead was moved deeper into the RV cavity on the septum at a more inferior and distal to the HIS
signals.
Once adequate signals were noted on the electrograms of the pacing lead in the sheath with W pattern signals on the RV septum, the lead was advanced and clockwise turns were done under fluoroscopic guidance. The septum was engaged and the lead was
paced intermittently after every 2-3 turns. There was sheath approximation confirmed on TAMMIE view and the pacing lead was advanced with clockwise turns into the septal location. The septum was successfully engaged. The lead was paced and septal
pacing was noted. The sheath was placed again to the septum and the lead was advanced 2-3 turns with pacing with each advancement. The ventricular capture was monitored throughout and the captures gradually changed from RV pacing to non-selective
pacing to LBB pacing with R wave on V1.
With RBBB pattern noted on the pacing lead, it was decided to accept the location as optimal location. The long guiding sheath was cut and removed from the RV without change in lead position, impedance, sensing, or capture.
The lead was sutured to the underlying pectoralis fascia with 2-0 Ethibond stitches. A purse string suture was deployed using the 2-0 Vicryl suture.
Then the right atrial lead was implanted. The RA lead was anchored in the right atrial appendage with engaging the active-fixation apparatus. There was excellent sensing, pacing, and impedance from the leads, with no diaphragmatic stimulation at 10
V output.�Bovie cautery, antibiotics, and fluoroscopy were used.
The leads were attached to the pulse generator in standard configuration with acceptable sensing and threshold parameters. The pocket was irrigated with antibiotic solution; the pocket was inspected with no active bleeding noted. The device and the
leads were placed in the pocket.
A Tyrx pouch was placed around the device and the leads.
The device was secured to the underlying fascia using 2-0 Ethibond suture.
Deep subcutaneous tissues were closed with 3 layers of 2-0V loc sutures; and the dermis was reopposed using a running 4-0 V-Loc subcuticular suture. Sponge counts / sharp counts were appropriate.
Procedure End:
The procedure was tolerated well. Aquacel bandaged was applied. A pressure dressing was applied.
Estimated Blood loss:
5 cc
Specimens Removed:
No cultures and no specimens were obtained. No intraoperative pathology was identified.
Urine output:
None
Packs / Drains/ Tubes:
None
Instrument / Sponge Count Correct:
Yes
Flouro time:
6.7min / 20 mGy
Complications of the Procedure:
None
Condition of Patient at Time of Transfer:
Hemodynamically stable with no neurological or vascular compromise.
Device information:�
Generator: Channel M; Model: W1DR01; Serial # [id number]�
����������� Atrial Lead: Medtronic; Model: 5076-45; Serial # [id number]
Measured data in the right atrium was sensing of 2.6 mV, impedance of 380 ohms and threshold of 0.75 V at 0.4ms�
����������� LBB pacing lead: Medtronic; Model: 3830-69; Serial # [id number]
����������������������� Measured data on the RV lead was sensing of 6.5mV, impedance of 912 ohms and threshold of 0.75V at 0.4ms
PROGRAMMING PARAMETERS:�
Harley parameter settings were DDDR 60-130 �
����������� Paced AV interval: 180ms
����������� Sensed AV interval: 150 ms.
����������� Rate Adaptive A-V Interval: on
����������� Mode switch ON
�
Summary:
Successful implantation of MRI compatible LBB pacing dual chamber Medtronic pacemaker.
Results/Recommendations:
-Please follow up CXR�
1. Please provide patient with adequate pain control�
Instructions to be given to patient:�
- Please follow up with [facility] at [address] [place] [address] ([phone]) to get your wound checked in 2 weeks of your discharge. Then follow with
- Do not wet incision site until after it is evaluated at cardiology clinic. No baths or showers until then. Sponge baths / showers are OK but dab dry the dressing after it is wet.�
- Allow 'steri strips' to fall off on their own�
- Do not lift left elbow above shoulder, particularly with sudden jerking movements, for 1 month�
- Do not lift anything weighing more than 5 pounds with the left arm for 1 month�
- If you notice any fevers, shortness of breath, lightheadedness, chest pain, or worsening swelling in the wound site, please contact the arrhythmia clinic, contact your head automatic sawyer, or present to the hospital for evaluation.�
iLsa Renae MD
Electrophysiology
[2024-02-24] MEDS: STERILE WATER FOR INJECTION 10 ML IV (17:18)
[2024-02-24] MEDS: AZACTAM 2000 MG IV (17:18)
--- NOTE | 2024-02-24 17:19 | PTCARENOTE ---
Received patient after ppm placed left upper chest. Aquacel dressing is dry and intact, immobilizer in place. Patient complaining of severe neck and upper back pain, she states is chronic but aggravated by lying flat for the procedure. Said she
sleeps in a recliner and never lies flat in bed. Offered prn tylenol or that she could sit oob in the chair after one hour of bedrest. Patient declining tylenol, states it bothers her stomach. Asking if she can take her homeopathic arnica, if
someone could bring it in for her, will check with the hospitalist if the patient is able to provide it.
[2024-02-24] MEDS: TYLENOL 650 MG PO (19:30)
[2024-02-24] MEDS: HYDROCORTISONE 2.5% CREAM TOPICAL (19:35)
--- NOTE | 2024-02-24 23:00 | PTCARENOTE ---
Pt received at change of shift. AV paced on tele with HR 60s-70s. L chest wall dressing c/d/i and immobilizer in place. Pt w/ complaints of upper back pain from laying flat on table during procedure, Tylenol administered per order, see MAR.
Ambulating independently without difficulty. Plan of care discussed and pt offers concerns about D/C tomorrow, as well as follow ups due to not living in this area. Pt anxious to speak to doctor in AM regarding these concerns. Can make needs known.
Call henry within reach.
[2024-02-24] MEDS: BENADRYL 12.5 MG IV (23:10)
[2024-02-24] MEDS: NORVASC 5 MG PO (23:10)
[2024-02-25] VITALS (11 sets, daily range): BP systolic 126–189; BP diastolic 55–91; PULSE 71–73; O2SAT 97
[2024-02-25 06:13] LABS: Hematocrit 37.5 % (37.0-47.0); Hemoglobin 12.3 g/dL (12.0-16.0); Mean Corp Hgb Conc. 32.8 g/dL (33.0-37.0); Mean Corpuscular Hgb 31.8 pg (27.0-31.0); Mean Corpuscular Volume 96.9 fL (81.0-99.0); Platelet Count 222 10^3/uL (130-400); Red Blood Cell Count 3.87 10^6/uL (4.20-5.40); Red Cell Dist. Width 14.6 % (11.5-14.5); White Blood Cell Count 7.3 10^3/uL (4.8-10.8)
[2024-02-25 06:31] LABS: Blood Urea Nitrogen 26 mg/dl (7-17); Calcium 9.1 mg/dl (8.4-10.2); Carbon Dioxide 19 mmol/L (22-30); Chloride 111 mmol/L (98-107); Estimated Creatinine Clearance 57 ml/min; Glucose 87 mg/dl (70-99); Potassium 4.3 mmol/L (3.5-5.1); Sodium 143 mmol/L (135-145); eGFR 55.42
[2024-02-25] MEDS: COZAAR 50 MG PO (07:50)
[2024-02-25] MEDS: APRESOLINE 10 MG PO ×2 (07:50→18:40)
[2024-02-25] MEDS: HYDROCORTISONE 2.5% CREAM TOPICAL (07:52)
--- NOTE | 2024-02-25 08:45 | W.PN.HOSP.TC ---
Today's Communication/Plan
-
Discharge planning.
Assessment / Plan
Assessment / Plan
Physical exam:
General: Well Developed, Well Nourished and No Apparent Distress
HEENT: Normocephalic, Atraumatic and Moist Mucous Membranes
Respiratory: Clear to Auscultation; Negative Wheezes, Rales or Rhonchi
Cardiac: Regular Rhythm, bradycardic, and S1/S2
GI: Soft, Nontender and Nondistended
Musculoskeletal: No Clubbing, No Cyanosis and No Edema
Neuro: Awake, Alert and Oriented
Psych: Calm
A/P:
Complete heart block with junctional escape and intermittent complete heart block with 2-1:
Status post pacemaker 02/23
Echo with normal EF
Pacemaker check today
Cardiology follow-up appreciated
PT OT eval for discharge disposition
NADINE:
Creatinine 1.1 today
Creatinine 1.6 upon admission
Hypertension:
Back on losartan 50 mg p.o. daily
Back on amlodipine 5 mg p.o. daily
On hydralazine 10 mg p.o. twice daily but motor power connector suspect that might not need it upon discharge
DVT prophylaxis:
Heparin SQ
CODE STATUS:
Full code
Anticipated Discharge: Within 24 hours
Subjective/Interval History
-
Date of Service: February 25, 2024
Patient denies any chest pain or shortness of breath. She does have some generalized weakness
Objective Data
-
Labs:
Laboratory Results
02/25/24
05:42
WBC 7.3
Hgb 12.3
Hct 37.5
Plt Count 222
Sodium 143
Potassium 4.3
Chloride 111 H
Carbon Dioxide 19 L
BUN 26 H
Creatinine 1.1 H
Glucose 87
Calcium 9.1
Vital Signs:
Vital Signs
Temp Pulse Resp BP Pulse Ox
97.7 F 61 18 126/65 96
02/25/24 07:48 02/25/24 05:35 02/25/24 07:48 02/25/24 05:35 02/25/24 07:48
I&O
02/24/24 02/25/24 02/26/24
06:59 06:59 06:59
Intake Total 650 / 650 240 / 240
Balance 650 / 650 240 / 240
--- NOTE | 2024-02-25 09:42 | W.PN.CD ---
Today's Communication / Plan
-
- Stable for discharge from cardiac stand point.,
- Wound check in 1-2 weeks.
Impression / Plan
-
68-year-old female with past medical history of hypertension who presented with shortness of breath and was found to have 2-1 AV block with RBBB, concerning for Mobitz type II.
Complete heart block with junctional escape
-Intermittent complete heart eliana with 2:1 heart block - new, no reversible causes.
- s/p PPM - 02/24/2024
- Echo 02/24/24: LVEF 60%. Essentially within normal limits
- PPM pocket is normal
- No fluctuations. CXR shows no PTX. The atria lead appeared pulled with inspiration and in upright compared to lying. Still enough slack. No need for revision.
- EKG showed intermittent atrial paced and V paced rhythm. QRS 136 msec - paced.
HTN - chronic, elevated on arrival.
- Resume home losartan as she has been hemodynamically stable for several days now
- continue Amlodipine
- Suspect we can stop hydralazine prior to discharge and uptitrate other meds
CKD
Nausea and diarrhea - per primary.
Subjective:
Feels well this morning. no active complaints. Refused pain meds and prefer homeopathic meds - reports excellent response.
Physical Exam
Vital Signs/Labs
Vital Signs
Temp Pulse Resp BP Pulse Ox
97.7 F 63 18 142/61 96
02/25/24 07:48 02/25/24 08:00 02/25/24 07:48 02/25/24 07:48 02/25/24 07:48
02/24/24 02/25/24 02/26/24
06:59 06:59 06:59
Actual Weight 100.8 kg
02/25/24 05:42
02/25/24 05:42
Magnesium 2.2 mg/dl (1.6-2.3) 02/21/24 16:19
02/21/24
15:07
[id number] Pept 1360
Physical Exam
Constitutional: No acute distress and Comfortable
EENT: Anicteric and Moist mucous membranes
Cardiovascular: Rhythm & rate is regular, Pedal edema is absent, JVD pressure is normal and Systolic murmur absent
Respiratory: Respiratory effort normal, Wheeze Absent and Crackles Absent
GI: Soft, Non tender and Normal bowel sounds
Neuro/Psych: Alert, Oriented and AO x 3
Other: Cardiac Device Site
Data Reviewed
-
Date of Service: February 25, 2024
Medical Decision Making: Reviewed Test Results and Independent Historian Assessment
EKG: Tracing Personally Visualized and interpreted
Echo: Report Reviewed by me
Labs: Labs Reviewed by me
Old Records: Reviewed
--- NOTE | 2024-02-25 13:35 | CM ---
Reviewed chart. Met with Ms. Arceo to review discharge plans. She states she is feeling okay. She states she is planning on getting a hotel room for a day os so before returning to her home in [place]. She is trying to find a friend that can
provide a ride home after her hotel stay. Prior to admission she resides alone in a two story home without any steps to enter. She has a full flight of steps to get to bedroom/full bathroom. She has a powder on the first floor. She does not have
any DME in the home. She has a prescription plan. Medical work-up in progress. The discharge plan is to go to a hotel for a few days before returning home when medically stable.
--- NOTE | 2024-02-25 15:30 | PTOTSP ---
pt currently demonstrates ability to complete simple ADLs, functional transfers, ambulation with supervision to no assistance. educated pt on pacemaker precautions and impact on ADLs, IADLs. pt verbalized understanding. no acute OT needs identified
at this time, will sign off.
--- NOTE | 2024-02-25 18:17 | PTCARENOTE ---
Pt received this am with no c/o of any incisional pain but stated she had some discomfort in her throat when she takes a deep breath. Left chest pacer site clean and dry with aqucell dressing intact. Ambulating in the room and nur with no
difficulty. Pt states she no longer had the throat pain that she had this am.
--- NOTE | 2024-02-25 19:27 | PTCARENOTE ---
Vital signs captured from previous shift.
[2024-02-25] MEDS: TYLENOL 650 MG PO (19:30)
[2024-02-25] MEDS: HYDROCORTISONE 2.5% CREAM 1 APPLIC TOPICAL (19:30)
[2024-02-25] MEDS: NORVASC 5 MG PO (22:26)
--- NOTE | 2024-02-25 23:00 | PTCARENOTE ---
Pt remains Vpaced on tele with HR in the 60s. L chest PPM site c/d/i. Pt w/ complaints of L shoulder pain, Tylenol administered per order, see MAR. Ambulating independently without difficulty. Pt with some concerns about discharge tomorrow
regarding getting to her car and where her medications would be sent until she is able to drive home to [place]. Questions answered by RN as able, pt encouraged to ask questions again as needed once discharge is confirmed in AM. Call henry within
reach.
[2024-02-26] MEDS: BENADRYL 12.5 MG IV (00:05)
[2024-02-26 04:00] VITALS: BP 163/67
[2024-02-26 04:18] LABS: Hematocrit 35.5 % (37.0-47.0); Mean Corp Hgb Conc. 33.8 g/dL (33.0-37.0); Mean Corpuscular Hgb 31.3 pg (27.0-31.0); Mean Corpuscular Volume 92.7 fL (81.0-99.0); Mean Platelet Volume 10.9 fL (7.4-10.4); Platelet Count 222 10^3/uL (130-400); Red Blood Cell Count 3.83 10^6/uL (4.20-5.40); Red Cell Dist. Width 14.6 % (11.5-14.5); White Blood Cell Count 7.2 10^3/uL (4.8-10.8)
[2024-02-26 04:45] LABS: Blood Urea Nitrogen 27 mg/dl (7-17); Calcium 9.1 mg/dl (8.4-10.2); Carbon Dioxide 22 mmol/L (22-30); Chloride 110 mmol/L (98-107); Estimated Creatinine Clearance 57 ml/min; Glucose 88 mg/dl (70-99); Potassium 4.4 mmol/L (3.5-5.1); Sodium 142 mmol/L (135-145); eGFR 55.42
[2024-02-26 07:35] VITALS: BP 178/62
--- NOTE | 2024-02-26 07:47 | W.PN.CD ---
Today's Communication / Plan
-
- Increase Amlodipine to 10 mg, Losartan to 100 mg and d/c Hydralazine.
Impression / Plan
-
68-year-old female with past medical history of hypertension who presented with shortness of breath and was found to have 2-1 AV block with RBBB, concerning for Mobitz type II.
Complete heart block with junctional escape
-Intermittent complete heart eliana with 2:1 heart block - new, no reversible causes.
- s/p PPM - 02/24/2024; interrogated on 02/25/24 working normally.
- Echo 02/24/24: LVEF 60%. Essentially within normal limits
- PPM pocket is normal
- No fluctuations. CXR shows no PTX. The atria lead appeared pulled with inspiration and in upright compared to lying. Still enough slack. No need for revision.
- EKG showed intermittent atrial paced and V paced rhythm. QRS 136 msec - paced.
HTN - chronic, elevated on arrival.
- Resume home losartan back from 50 to 100 mg QD
- Increase Amlodipine to 10 mg QD
- stop hydralazine to PRN now.
CKD
Nausea and diarrhea - per primary.
Subjective:
Feels well this morning. no active complaints. thankful.
Physical Exam
Vital Signs/Labs
Vital Signs
Temp Pulse Resp BP Pulse Ox
98 F 66 18 163/67 97
02/26/24 04:10 02/26/24 04:00 02/26/24 07:36 02/26/24 04:00 02/26/24 07:36
02/26/24 04:07
02/26/24 04:07
Magnesium 2.2 mg/dl (1.6-2.3) 02/21/24 16:19
02/21/24
15:07
Gve-M-[id number] Pept 1360
Physical Exam
Constitutional: No acute distress and Comfortable
EENT: Anicteric and Moist mucous membranes
Cardiovascular: Rhythm & rate is regular, Pedal edema is absent and JVD pressure is normal
Respiratory: Respiratory effort normal, Lungs clear to auscul. and Wheeze Absent
GI: Soft, Non tender and Normal bowel sounds
Neuro/Psych: Alert, Oriented and AO x 3
Other: Cardiac Device Site
Data Reviewed
-
Date of Service: February 26, 2024
Medical Decision Making: Reviewed Test Results and Independent Historian Assessment
EKG: Tracing Personally Visualized and interpreted
Echo: Report Reviewed by me
Labs: Labs Reviewed by me
Old Records: Reviewed
[2024-02-26] MEDS: COZAAR 100 MG PO (08:13)
[2024-02-26] MEDS: HYDROCORTISONE 2.5% CREAM 1 APPLIC TOPICAL (08:18)
--- NOTE | 2024-02-26 08:47 | W.PN.HOSP.TC ---
Today's Communication/Plan
-
Discharge planning today
Assessment / Plan
Assessment / Plan
Physical exam:
General: Well Developed, Well Nourished and No Apparent Distress
HEENT: Normocephalic, Atraumatic and Moist Mucous Membranes
Respiratory: Clear to Auscultation; Negative Wheezes, Rales or Rhonchi
Cardiac: Regular Rhythm, bradycardic, and S1/S2. Pacemaker in place
GI: Soft, Nontender and Nondistended
Musculoskeletal: No Clubbing, No Cyanosis and No Edema
Neuro: Awake, Alert and Oriented
Psych: Calm
A/P:
Complete heart block with junctional escape and intermittent complete heart block with 2-1:
Status post pacemaker 02/23
Echo with normal EF
Pacemaker check yesterday and okay
Cardiology follow-up appreciated
PT OT eval for discharge disposition
Cardiology cleared for discharge
NADINE:
Creatinine 1.1 today
Creatinine 1.6 upon admission
Hypertension:
Back on losartan and increased 100 mg p.o. daily
Back on amlodipine and increase to 10 mg p.o. daily
Discontinued hydralazine
DVT prophylaxis:
Heparin SQ
CODE STATUS:
Full code
Anticipated Discharge: Today
Subjective/Interval History
-
Date of Service: February 26, 2024
Patient doing well overall. She did have mild elevated blood pressure but cardiology adjusting her medications.
Objective Data
-
Labs:
Laboratory Results
02/26/24
04:07
WBC 7.2
Hgb 12.0
Hct 35.5 L
Plt Count 222
Sodium 142
Potassium 4.4
Chloride 110 H
Carbon Dioxide 22
BUN 27 H
Creatinine 1.1 H
Glucose 88
Calcium 9.1
Vital Signs:
Vital Signs
Temp Pulse Resp BP Pulse Ox
98 F 66 18 178/62 97
02/26/24 04:10 02/26/24 08:13 02/26/24 07:36 02/26/24 08:13 02/26/24 07:36
I&O
02/25/24 02/26/24 02/27/24
06:59 06:59 06:59
Intake Total 240 / 240
Balance 240 / 240
--- NOTE | 2024-02-26 10:24 | CM ---
Addendum entered by Dennise Briones 02/26/24 14:05:
Received consult for [facility]. Met with Ms. Arceo to review [facility]. She states she does not feel she will need [facility] Services/ At this time she is declining [facility].
Original Note:
Reviewed chart. Met with Mrs Arceo to review discharge plans. She state she is feeling better She states she booked a hotel room at a hotel in [place] on [facility]. She is planning on staying for a few days. She will try to find a ride home
after her hotel stay. Prior to admission she resides alone in a two story home without any steps She has a full flight of steps to get to bedroom/full bathroom. She has a powder room on the first floor. She does not have any DME in the home. She
states she has a prescription plan. Medical work-up in progress. The discharge plan is to go to a hotel for a few days before returning home when medically stable.
[2024-02-26 12:05] VITALS: BP 180/67
[2024-02-26] MEDS: APRESOLINE 10 MG PO (12:39)
[2024-02-26 12:56] VITALS: BP 187/71
--- NOTE | 2024-02-26 13:25 | W.DCSUMMARY ---
Discharge Summary
Discharge Data
Date of Admission: 02/21/24
Date of Discharge: 02/26/24
-
Pending Results: No
Hospital Course
Patient is 68-year-old female with history of hypertension presented to the hospital with dyspnea and found to be bradycardic. Patient was found to have Mobitz type II with underlying right bundle branch block. Cardiology evaluated the patient.
She was felt to be a candidate for pacemaker. She had an echocardiogram with EF of 65 to 70%. She underwent pacemaker without any complications. Cardiology adjusted her blood pressure medications. Cardiology has cleared her for discharge. She
worked with PT and OT. We were going to arrange home health but patient declined. Patient otherwise is hemodynamically stable and stable for discharge today.
Discharge duration: 35 minutes
Discharge Plan
-
Patient Disposition: Home with Home Care
Discharge Diagnosis/Procedures: Heart block, 2:1
Status post permanent pacemaker 02/24/2024.
Hypertension.
Acute kidney injury.
Diet: Low Cholesterol
Driving Restrictions: No driving for 1 week
Blood Work: Please PCP to order CBC, BMP within 1 week
Stand Alone Forms: [facility] - Implanted Device
Referrals:
Primary care, provider [Other] (Please see less than 1 week)
Lisa Renae MD [Active] - in one to two weeks
Prescriptions:
New
amlodipine 10 mg tablet
10 mg PO HS Qty: 30 0RF
Continued
diphenhydramine HCl 50 mg Capsule
50 mg PO HSPRN PRN (Reason: allergies)
cetirizine [Zyrtec] 10 mg Tablet
10 mg PO DAILYPRN PRN (Reason: allergies)
albuterol sulfate 90 mcg/actuation Hfa Aerosol Inhaler
2 puff INHALATION R Q6HPRN PRN (Reason: sob)
losartan 100 mg Tablet
100 mg PO DAILY Qty: 30 0RF
Discontinued
amlodipine 5 mg Tablet
5 mg PO HS
Discharge Orders:
Discharge Patient (As Directed); Ordered 02/26/24
Ordered By: Reji Torre
Care Plan Goals
Care Plan Goals:
Problem: Readiness for enhanced knowledge related to diagnosis and treatment plan
Goal: Understand your diagnosis and treatment plan needs, including medications if applicable.
Instructions: Know your diagnosis, underlying causes and treatment plan options, including medications if applicable. Consult with your health care team to learn about your diagnosis and treatment plan, including medications if applicable.
Discharge Date and Time
Discharge Date/Time: 02/26/24 16:07
Print Language: GUYANESE
[2024-02-26 14:19] VITALS: BP 170/68
== END 2024-02-26 16:07 | disposition home health service (06) | DRG 243 ==
LOC: IVU 18:20
PROVIDERS: Internal Medicine Cardiovascular Disease; Nurse Practitioner; Registered Nurse; ADMITTING PHYSICIAN Hospitalist; ATTENDING PHYSICIAN Hospitalist; CONSULT PHYSICIAN Student in an Organized Health Care Education/Training Program; EMERGENCY PHYSICIAN Student in an Organized Health Care Education/Training Program
PROC: 3E0102A Introduction of Anti-Infective Envelope into Subcutaneous Tissue, Open Approach (ICD-10-PCS; 2024-02-24)
PROC: 02HK3JZ Insertion of Pacemaker Lead into Right Ventricle, Percutaneous Approach (ICD-10-PCS; 2024-02-24)
PROC: 0JH606Z Insertion of Pacemaker, Dual Chamber into Chest Subcutaneous Tissue and Fascia, Open Approach (ICD-10-PCS; 2024-02-24)
PROC: 02H63JZ Insertion of Pacemaker Lead into Right Atrium, Percutaneous Approach (ICD-10-PCS; 2024-02-24)
DX: I44.2 Atrioventricular block, complete (principal); N17.9 Acute kidney failure, unspecified; I44.1 Atrioventricular block, second degree; I10 Essential (primary) hypertension; E66.9 Obesity, unspecified; Z60.2 Problems related to living alone; Z68.39 Body mass index [BMI] 39.0-39.9, adult; Z88.0 Allergy status to penicillin; Z88.2 Allergy status to sulfonamides
CPT/HCPCS: 33208; 71045; 71046; 80048; 83735; 83880; 84132; 84443; 84484; 85025; 85027; 93005; 93306; 97162; 97165; 99285; C1769; C1785; C1887; C1892; C1898; Q9950; Q9967